=== PATIENT | male | born 1945 ===

== ENCOUNTER 2020-03-17 09:05 | Inpatient (IN) ==
[2020-03-17] MEDS ORDERED: Isovue-370 500 ML BOTTLE IVP ONE (09:11)
[2020-03-17 09:31] LABS: Mean Corpuscular HGB Conc 33.3 g/dL (31.6-35.5); Mean Corpuscular Hemoglobin 29.6 pg (28.0-33.3); Mean Corpuscular Volume 88.8 fL (83.0-100.0); Mean Platelet Volume 9.3 fL (9.4-12.4); Platelet Count 182 K/mcL (140-400); Red Blood Count 4.73 M/mcL (4.19-5.50); Red Cell Distribution Width 14.5 % (11.5-14.5); White Blood Count 8.4 K/mcL (4.3-11.1)
[2020-03-17 09:34] LABS: INR 1.3; Prothrombin Time 15.3 Seconds (9.4-12.1)
[2020-03-17] MEDS ORDERED: Aspirin 81 MG TAB.CHEW ONE (09:34)
[2020-03-17 09:36] LABS: Activated Partial Thrombo Time 37.3 Seconds (26.0-36.0)
[2020-03-17] MEDS ORDERED: Aspirin 325 MG TABLET PO ONE (09:36)
[2020-03-17] MEDS ORDERED: Aspirin 81 MG TAB.CHEW PO ONE (09:41)
[2020-03-17 09:52] LABS: BUN/Creatinine Ratio 22 (6-26); Blood Urea Nitrogen 19 mg/dL (8-23); Calcium 8.9 mg/dL (8.6-10.3); Carbon Dioxide 26 mEq/L (23-29); Chloride 106 mEq/L (98-107); Ethanol < 10 mg/dL (Less than 10); Glucose 156 mg/dL (70-105); Osmolality,Calculated 291 (280-300); Potassium 4.2 mEq/L (3.5-5.1); Sodium 138 mEq/L (136-145); Troponin I < 0.03 ng/mL (< 0.04); eGFR For African Americans > 60 (> 60); eGFR For Non-African Americans > 60 (> 60)
[2020-03-17] MEDS ORDERED: Naloxone 0.4 MG/ML INJ IVP PRN (10:24)
[2020-03-17] MEDS ORDERED: *HR* OxyCODONE Immed Rel 5 MG TABLET PO PRN (10:33)
[2020-03-17] MEDS ORDERED: Perflutren Lipid Microsphere 1.3 ML in 0.9 % Sodium Chloride 8.7 ML IVP PRN (10:56)
[2020-03-17 13:16] LABS: Influenza A PCR Negative (Negative); Influenza B PCR Negative (Negative); Resp. Syncytial Virus PCR Negative (Negative)
[2020-03-17 13:21] LABS: SARS-CoV-2 by PCR (In House) Negative (Negative)
[2020-03-17] MEDS ORDERED: Dextrose Gel 15 GM/37.5 ML TUBE PO PRN ×2 (14:44)
[2020-03-17] MEDS ORDERED: D5% in Water 1,000 ML IVC PRN (14:44)
[2020-03-17] MEDS ORDERED: *HR* Dextrose 50 % in Water (Vial) 50 ML VIAL IVP PRN (14:44)
[2020-03-17] MEDS ORDERED: Gadolinium Contrast Agent (WT Based) IV PRN (14:57)
[2020-03-17] MEDS: Insulin LISPRO 300 UNITS/3 ML VIAL SUBQ SCH ×2 (16:26→20:01)
[2020-03-17] MEDS: carvediloL 6.25 MG TABLET PO SCH (17:21)
[2020-03-17] MEDS: *HR* Dabigatran 150 MG CAPSULE PO SCH (20:01)
[2020-03-17] MEDS ORDERED: ALPRAZolam 0.5 MG TABLET PO ONE (23:00)
[2020-03-18] MEDS ORDERED: Furosemide 40 MG/4 ML VIAL IVP ONE (04:33)
[2020-03-18 05:22] LABS: Basophils # 0.1 K/mcL (0.0-0.2); Basophils % 0.6 %; Eosinophils # 0.3 K/mcL (0.0-0.6); Eosinophils % 3.3 %; Hematocrit 42.6 % (37.5-50.1); Hemoglobin 13.7 g/dL (12.9-16.9); Immature Granulocytes % 0.2 % (0-4); Lymphocytes # 1.5 K/mcL (0.6-4.6); Mean Corpuscular HGB Conc 32.2 g/dL (31.6-35.5); Mean Corpuscular Hemoglobin 28.7 pg (28.0-33.3); Mean Corpuscular Volume 89.1 fL (83.0-100.0); Mean Platelet Volume 9.3 fL (9.4-12.4); Monocytes # 0.9 K/mcL (0.0-1.3); Monocytes % 10.9 %; Neutrophils # 5.5 K/mcL (1.6-8.9); Platelet Count 181 K/mcL (140-400); Red Blood Count 4.78 M/mcL (4.19-5.50); Red Cell Distribution Width 14.4 % (11.5-14.5); White Blood Count 8.2 K/mcL (4.3-11.1)
[2020-03-18 05:39] LABS: INR 1.4; Prothrombin Time 15.8 Seconds (9.4-12.1)
[2020-03-18 05:43] LABS: BUN/Creatinine Ratio 20 (6-26); Blood Urea Nitrogen 15 mg/dL (8-23); Calcium 9.3 mg/dL (8.6-10.3); Carbon Dioxide 23 mEq/L (23-29); Chloride 104 mEq/L (98-107); Chol/HDL Ratio 5.9 (0-4.9); Cholesterol 136 mg/dL (< 200); Glucose 117 mg/dL (70-105); HDL Cholesterol 23 mg/dL (40-59); LDL Cholesterol,Calculated 100 mg/dL (< 100); Osmolality,Calculated 280 (280-300); Potassium 4.3 mEq/L (3.5-5.1); Sodium 134 mEq/L (136-145); Triglycerides 64 mg/dL (< 150); eGFR For African Americans > 60 (> 60); eGFR For Non-African Americans > 60 (> 60)
[2020-03-18 05:44] LABS: Troponin I < 0.03 ng/mL (< 0.04)
[2020-03-18 05:52] LABS: Estimated Average Glucose 140 mg/dl; Hemoglobin A1C 6.5 %
[2020-03-18] MEDS: Spironolactone 12.5 MG TABLET PO SCH (07:56)
[2020-03-18] MEDS: carvediloL 6.25 MG TABLET PO SCH ×2 (07:56→16:01)
[2020-03-18] MEDS: *HR* Dabigatran 150 MG CAPSULE PO SCH ×2 (07:56→20:03)
[2020-03-18] MEDS: Insulin LISPRO 300 UNITS/3 ML VIAL SUBQ SCH ×4 (07:57→20:03)
[2020-03-18] MEDS: Furosemide 20 MG TABLET PO SCH (08:00)
[2020-03-18] MEDS ORDERED: Aspirin Enteric Coated 81 MG Tablet PO SCH (09:00)
[2020-03-18] MEDS ORDERED: ALPRAZolam 0.5 MG TABLET PO PRN (09:15)
[2020-03-18] MEDS: predniSONE 20 MG TABLET PO SCH (14:25)
[2020-03-19] MEDS: *HR* Dabigatran 150 MG CAPSULE PO SCH (07:46)
[2020-03-19] MEDS: Furosemide 20 MG TABLET PO SCH (07:46)
[2020-03-19] MEDS: predniSONE 20 MG TABLET PO SCH (07:46)
[2020-03-19] MEDS: Spironolactone 12.5 MG TABLET PO SCH (07:46)
[2020-03-19] MEDS: carvediloL 6.25 MG TABLET PO SCH (07:47)
[2020-03-19] MEDS: Insulin LISPRO 300 UNITS/3 ML VIAL SUBQ SCH (07:53)
[2020-03-19 08:08] VITALS: BP 100/66
[2020-03-19] MEDS ORDERED: Isovue-370 500 ML BOTTLE IVP ONE (09:01)
[2020-03-19] MEDS ORDERED: Acyclovir 200 MG CAPSULE PO SCH (09:15)
[2020-03-19] MEDS ORDERED: Aspirin Enteric Coated 81 MG Tablet PO SCH (09:15)
[2020-03-19] MEDS ORDERED: Aspirin Enteric Coated 325 MG Tablet PO SCH (21:00)
== END 2020-03-19 12:51 | disposition home or self-care (01) | DRG 74 ==
LOC: EMEROOARM 09:05 → 3BNU 09:05 → SUATTDRO 10:23 → 3BNU 12:24
PROVIDERS: ADMIT Internal Medicine; ATTEND Internal Medicine